=== PATIENT | female | born 1995 | race Two or more races ===

== ENCOUNTER 2020-04-02 15:43 | Outpatient (REF) | payer MEDICAID, SELFPAY | END 2020-04-02 15:44 | disposition home or self-care (01) | LOC: HO.LAB 15:43 | PROVIDERS: PCP Internal Medicine; Visit Provider Internal Medicine | DX: Z20.828 Contact with and (suspected) exposure to other viral communicable diseases (principal) | CPT/HCPCS: 87635 ==

== ENCOUNTER 2021-02-26 15:22 | Outpatient (REF) | payer MEDICAID, SELFPAY | END 2021-02-26 15:23 | disposition home or self-care (01) | LOC: HO.LAB 15:22 | PROVIDERS: PCP Internal Medicine; Visit Provider Internal Medicine | DX: Z20.822 Contact with and (suspected) exposure to COVID-19 (principal) | CPT/HCPCS: C9803; U0003; U0005 ==

== ENCOUNTER 2022-01-04 08:13 | Outpatient (REF) | payer MEDICAID, SELFPAY ==
[2022-01-04 08:33] LABS: MANUAL DIFF FLAG NO
[2022-01-04 09:00] LABS: Basophils Percent Auto 0.2 % (0-2); Eosinophils Absolute Auto 0.1 X10*3/uL (0.0-0.4); Eosinophils Percent Auto 1.5 % (0-4); Hematocrit 39.2 % (37.0-47.0); Hemoglobin 12.9 g/dl (12.0-16.0); Imm Gran Abs Auto 0.02 X10*3/uL (0.00-0.03); Imm Gran Pct Auto 0.4 % (0.0-0.4); Lymphocytes Absolute Auto 1.4 X10*3/uL (1.2-4.9); Lymphocytes Percent Auto 25.7 % (20-40); Mean Corpuscular HGB Conc 32.9 g/dl (31.0-35.0); Mean Corpuscular Hemoglobin 29.4 pg (27.0-33.0); Mean Corpuscular Volume 89.3 fL (80.0-98.0); Mean Platelet Volume 11.2 fL (9.4-12.3); Monocytes Absolute Auto 0.2 X10*3/uL (0.1-1.2); Monocytes Percent Auto 4.3 % (2-11); Neutrophils Absolute Auto 3.7 x10*3/uL (2.0-8.3); Neutrophils Percent Auto 67.9 % (45-73); Platelet Count 170 X10*3/uL (160-400); Red Blood Count 4.39 X10*6/uL (4.20-5.50); Red Cell Distribution Width 13.7 % (11.0-16.0); White Blood Count 5.4 X10*3/uL (4.8-10.8)
[2022-01-04 09:26] LABS: Alanine Aminotransferase 7 U/L (0-31); Albumin Level 4.1 g/dL (3.5-5.0); Alkaline Phosphatase 59 U/L (39-117); Anion Gap 14 (12-20); Aspartate Amino Transferase 15 U/L (5-31); Bilirubin Total 0.4 mg/dL (0.0-1.0); Blood Urea Nitrogen 14 mg/dL (9-16); Carbon Dioxide 28 mmol/L (22-29); Chloride 104 mmol/L (96-108); Cholesterol 140 mg/dL; Estimated Glomerular Filt Rate > 60; Glucose Random 139 mg/dL (60-115); HDL Cholesterol 39 mg/dL; LDL Cholesterol Calculated 67 mg/dl; Sodium 141 mmol/L (135-145); Total Protein 6.8 g/dL (6.5-8.0); Triglycerides 170 mg/dL
[2022-01-04 09:50] LABS: Ferritin 22 ng/mL (10-122); Thyroid Stimulating Hormone 2.06 uIU/mL (0.32-4.0)
== END 2022-01-04 08:14 | disposition home or self-care (01) ==
LOC: HO.LAB 08:13
PROVIDERS: PCP Internal Medicine; Visit Provider Internal Medicine
DX: Z00.01 Encounter for general adult medical examination with abnormal findings (principal); D50.8 Other iron deficiency anemias; E66.01 Morbid (severe) obesity due to excess calories; G47.33 Obstructive sleep apnea (adult) (pediatric)
CPT/HCPCS: 36415; 80053; 80061; 82728; 84443; 85025

== ENCOUNTER 2023-03-17 11:03 | Outpatient (REF) | payer MEDICAID, SELFPAY ==
[2023-03-17 11:17] LABS: MANUAL DIFF FLAG NO
[2023-03-17 12:48] LABS: Basophils Percent Auto 0.2 % (0-2); Eosinophils Percent Auto 0.7 % (0-4); Hematocrit 36.5 % (37.0-47.0); Hemoglobin 11.8 g/dl (12.0-16.0); Imm Gran Abs Auto 0.01 X10*3/uL (0.00-0.03); Imm Gran Pct Auto 0.2 % (0.0-0.4); Lymphocytes Absolute Auto 1.4 X10*3/uL (1.2-4.9); Lymphocytes Percent Auto 31.9 % (20-40); Mean Corpuscular HGB Conc 32.3 g/dl (31.0-35.0); Mean Corpuscular Hemoglobin 27.3 pg (27.0-33.0); Mean Corpuscular Volume 84.3 fL (80.0-98.0); Monocytes Absolute Auto 0.2 X10*3/uL (0.1-1.2); Monocytes Percent Auto 4.7 % (2-11); Neutrophils Absolute Auto 2.7 x10*3/uL (2.0-8.3); Neutrophils Percent Auto 62.3 % (45-73); Platelet Count 174 X10*3/uL (160-400); Red Blood Count 4.33 X10*6/uL (4.20-5.50); Red Cell Distribution Width 14.5 % (11.0-16.0); White Blood Count 4.3 X10*3/uL (4.8-10.8)
[2023-03-17 13:29] LABS: Alanine Aminotransferase 7 U/L (0-31); Albumin Level 4.2 g/dL (3.5-5.0); Alkaline Phosphatase 58 U/L (39-117); Anion Gap 14 (12-20); Aspartate Amino Transferase 16 U/L (5-31); Bilirubin Total 0.4 mg/dL (0.0-1.0); Blood Urea Nitrogen 14 mg/dL (9-16); Calcium 9.8 mg/dL (8.4-10.2); Carbon Dioxide 26 mmol/L (22-29); Chloride 106 mmol/L (96-108); Cholesterol 113 mg/dL (<200); Estimated Glomerular Filt Rate > 60; Glucose Random 80 mg/dL (60-115); HDL Cholesterol 33 mg/dL (>40); LDL Cholesterol Calculated 62 mg/dL (<100); Potassium 4.9 mmol/L (3.3-5.1); Sodium 141 mmol/L (135-145); Total Protein 7.1 g/dL (6.5-8.0); Triglycerides 94 mg/dL (<150)
[2023-03-17 13:41] LABS: Thyroid Stimulating Hormone 1.75 uIU/mL (0.32-4.0)
== END 2023-03-17 11:04 | disposition home or self-care (01) ==
LOC: HO.LAB 11:03
PROVIDERS: PCP Internal Medicine; Visit Provider Internal Medicine
DX: Z00.00 Encounter for general adult medical examination without abnormal findings (principal); G47.33 Obstructive sleep apnea (adult) (pediatric); R73.01 Impaired fasting glucose
CPT/HCPCS: 36415; 80053; 80061; 84443; 85025

== ENCOUNTER 2023-04-01 12:11 | Emergency (ER) | payer MEDICAID, SELFPAY ==
--- NOTE | ~2023-04-01 | US_ITS ---
EXAMINATION: US PELVIS CLINICAL INFORMATION: Pelvic pain COMPARISON: None available. TECHNIQUE: Ultrasound of the pelvis is performed using transabdominal technique along with Doppler. Transvaginal imaging is performed due to inadequate visualization transabdominally. FINDINGS: Uterus: The uterus is anteverted and measures 9.1 x 5.0 x 5.5 cm. The double wall endometrial thickness is 7 mm. The uterus is smooth in contour and has normal myometrial echogenicity. No visible fibroid. Adnexa: Both ovaries are visualized. There is normal color flow to the adnexa. There is no ovarian torsion. There is no pelvic ascites or fluid collection. Right ovary measures 3 mL in volume and left ovary measures 2 mL in volume US/US pelvic complete IMPRESSION: Unremarkable transabdominal pelvic ultrasound.
[2023-04-01 12:44] VITALS: BP 112/70; PULSE 62; RESP 18; TEMP 36.4; O2SAT 100; BMI 50.8
--- NOTE | 2023-04-01 12:45 | ED_ITS ---
HPI - Back Pain/Injury General Chief Complaint: Abdominal Pain Stated Complaint: Back pain Time Seen by Provider: 04/01/23 13:40 Source: patient Mode of arrival: ambulatory Limitations: no limitations History of Present Illness HPI Narrative: 27-year-old female with a history of developmental delay here with her mom who makes medical decisions for her presents with lower back pain and suprapubic discomfort. Per patient she is currently on her menstrual cycle. She typically does have painful heavy bleeding when she has her menstrual cycle. She does also typically have lower back pain when she has her menses. Mom reports symptoms today were more severe from her baseline. She denies any urinary symptoms, fevers, chills, nausea, vomiting, diarrhea, constipation. Did not try any elhu-gjl-byygtde medications. Per mom and patient she is not sexually active and never has been Related Data Previous Rx's Medication Instructions Recorded ibuprofen 600 mg tablet 600 mg PO Q8H PRN pain #30 tabs 04/01/23 nitrofurantoin 100 mg PO Q12H 5 days #10 caps 04/01/23 monohydrate/macrocrystals 100 mg capsule (Macrobid) Allergies Allergy/AdvReac Type Severity Reaction Status Date / Time No Known Allergies Allergy Verified 04/01/23 12:43 Review of Systems 2 Review of Systems: Yes all other systems are reviewed and are negative Constitutional: Constitutional: Reports no additional constitutional complaints, Denies body ache(s), Denies chills, Denies fever(s), Denies headache(s) and Denies weakness Eyes: Eyes: Reports no additional eye complaints and Denies change in vision ENT: Reports system reviewed and no additional complaints, except as documented, Denies dizziness, Denies headache(s), Denies nasal congestion, Denies nasal discharge and Denies neck pain Cardiovascular: Cardiovascular: Reports no additional cardiovascular complaints, Denies chest pain, Denies leg edema and Denies dyspnea Respiratory: Respiratory: Reports no additional respiratory complaints, Denies cough and Denies dyspnea Gastrointestinal: Gastrointestinal: Reports no additional gastrointestinal complaints, Denies abdominal pain, Denies diarrhea, Denies nausea and Denies vomiting Genitourinary: Genitourinary: Reports no additional female genitourinary complaints, Denies hematuria, Denies dysuria, Reports pelvic pain, Denies urinary incontinence, Denies urinary hesitancy, Denies urinary urgency and Denies vaginal discharge Musculoskeletal: Musculoskeletal: Reports no additional musculoskeletal complaints, Reports back pain, Denies arthralgias, Denies joint swelling, Denies neck pain, Denies numbness and Denies tingling Integumentary/Breasts: Skin/Breast: Reports system reviewed and no additional complaints, except as docu and Denies rash Neurologic: Reports system reviewed and no additional complaints, except as documented, Denies Abnormal speech present, Denies dizziness, Denies headache(s), Denies numbness, Denies tingling and Denies weakness PMFSH Past Medical History Attestation statement: The following information was validated with the patient. Source: old records reviewed and nursing notes reviewed Social History Social History Advance Directives: No Advance Directives Information Provided: No Physical Exam 2 Vital Signs: Vital Signs: Last Vital Signs Temp 97.5 F 04/01/23 12:44 Pulse 62 04/01/23 12:44 Resp 18 04/01/23 12:44 BP 112/70 04/01/23 12:44 Pulse Ox 100 04/01/23 12:44 O2 Del Method Room Air 04/01/23 12:44 BMI result Body Mass Index 50.8 Const: General: cooperative, healthy appearing, comfortable and no acute distress Orientation/consciousness: patient oriented x3 Limitations: no limitations HEENT: Head: Yes normal to inspection Ears: hearing grossly normal bilaterally General nose exam: Normal external nose present Face and sinus: Yes normal facial exam Mouth: Normal oral and palatal mucosa present Throat: Yes posterior oropharynx normal Eyes: General: appearance normal, both eyes and all related structures P upils: Equal, round and reactive pupils present Neck: Neck: Yes normal visual inspection Chest: Chest palpation & inspection: normal inspection of the chest Resp: Effort & Inspection: normal respiratory effort Auscultation: clear to auscultation bilaterally Cardio: Rate: regular rate Rhythm: regular rhythm Peripheral pulses: P eripheral pulses 2+ throughout GI: Inspection: Yes normal to inspection Palpation (GI): Soft to palpation and nontender Auscultation: normal bowel sounds : General: Yes no CVA tenderness Back/Spine/Pelvis: Back: no CVA tenderness Thoracic/Lumbar Spine: thoracic and lumbar spine normal to inspection Skin: General skin exam: no rashes or lesions noted Neuro: General: patient oriented x3, no focal motor deficits and normal sensation to monofilament Cranial nerves: Yes Equal, round and reactive pupils present Cognition (Neuro): normal cognition Speech: No Abnormal speech present Gait exam (Neuro): Normal gait present Motor exam (neuro): 5/5 motor strength present throughout Extrem: General: Yes normal to inspection Course Course Course Narrative: This is an RME: Additional HPI, ROS, PE not included below will be deferred to primary provider. Patient is a 27-year-old female who presents to the emergency department for evaluation of diffuse lower back pain. Reports she has been experiencing pain since the onset of her menstrual cycle. She is currently at the end of the cycle, but states that the pain is worse today than previously. Reports pain with urination and lower ABD pain. Plan: labs, U/A Reevaluation(s) Reevaluation #1: UA is consistent with UTI. Labs are unremarkable. Pelvic ultrasound is negative. Pain is resolved toradol. Reviewed worrisome signs and symptoms of when to return to the emergency room. Comfortable plan for discharge home. Medications Administered Discontinued Medications Generic Name Dose Route Start Last Admin Trade Name Freq PRN Reason Stop Dose Admin Ketorolac Tromethamine 30 mg 04/01/23 14:37 04/01/23 15:03 Ketorolac Tromethamine 30 Mg/Ml Vial IM 04/01/23 14:38 30 mg ONCE ONE Administration Medical Decision Making Medical Decision Making [facility] Narrative: 27-year-old female with a history of developmental delay here with her mom who makes medical decisions for her presents with lower back pain and suprapubic discomfort.? Per patient she is currently on her menstrual cycle.? She typically does have painful heavy bleeding when she has her menstrual cycle.? She does also typically have lower back pain when she has her menses.? Mom reports symptoms today were more severe from her baseline.? She denies any urinary symptoms, fevers, chills, nausea, vomiting, diarrhea, constipation.? Did not try any biqn-awz-qjxskjb medications.? Per mom and patient she is not sexually active and never has been No CVA tenderness. No focal abdominal pain. Patient appears comfortable. I will obtain a UA, urine , labs and pelvic ultrasound. Will provide analgesia Differential Diagnosis Differential Diagnoses: The differential diagnosis associated with the presentation includes Doubt ovarian torsion as patient appears quite comfortable. Less likely appendicitis Consider ovarian cysts, dysmenorrhea, UTI Admission/Observation Consideration of admission/observation: Escalation of care including admission/observation considered No concern for pyelonephritis or renal colic with no CVA tenderness, patient nontoxic appearing, afebrile, tolerating p.o. with no difficulty, pain is resolved with Toradol in the emergency room. No need for IV antibiotics and or admission Lab Data MDM Lab Attestation statement: I reviewed the patient's lab results. 04/01/23 13:47 04/01/23 13:47 Labs: Lab Results 04/01/23 04/01/23 04/01/23 Range/Units 13:47 15:05 15:06 WBC 6.6 (4.8-10.8) X10*3/uL RBC 3.97 L (4.20-5.50) X10*6/uL Hgb 11.0 L (12.0-16.0) g/dl Hct 33.5 L (37.0-47.0) % MCV 84.4 (80.0-98.0) fL MCH 27.7 (27.0-33.0) pg MCHC 32.8 (31.0-35.0) g/dl RDW 14.6 (11.0-16.0) % Plt Count 179 (160-400) X10*3/uL MPV 11.8 (9.4-12.3) fL Immature Gran % (Auto) 0.5 H (0.0-0.4) % Neut % (Auto) 87.4 H (45-73) % Lymph % (Auto) 8.7 L (20-40) % [place] % (Auto) 3.2 (2-11) % Eos % (Auto) 0.2 (0-4) % Baso % (Auto) 0.0 (0-2) % Lymph # (Auto) 0.6 L (1.2-4.9) X10*3/uL [place] # (Auto) 0.2 (0.1-1.2) X10*3/uL Eos # (Auto) 0.0 (0.0-0.4) X10*3/uL Baso # (Auto) 0.0 (0.0-0.2) X10*3/uL Abs Immat Gran (auto) 0.03 (0.00-0.03) X10*3/uL Absolute Neuts (auto) 5.8 (2.0-8.3) x10*3/uL Absolute Nucleated RBC 0.000 (0.0-0.012) X10*3/uL Nucleated RBC % (auto) 0.0 (0.0-0.2) /100WBC Sodium 141 (135-145) mmol/L Potassium 4.2 (3.3-5.1) mmol/L Chloride 106 (96-108) mmol/L Carbon Dioxide 25 (22-29) mmol/L Anion Gap 14 (12-20) BUN 12 (9-16) mg/dL Creatinine 0.75 (0.5-1.4) mg/dL Estim Creat Clear Calc 153.9 Estimated GFR > 60 Random Glucose 110 (60-115) mg/dL Calcium 9.3 (8.4-10.2) mg/dL Total Bilirubin 0.5 (0.0-1.0) mg/dL AST 15 (5-31) U/L ALT 8 (0-31) U/L Alkaline Phosphatase 57 (39-117) U/L Total Protein 6.8 (6.5-8.0) g/dL Albumin 4.0 (3.5-5.0) g/dL Lipase 46 (8-78) U/L Urine Color [place] A Urine Appearance Cloudy Urine pH 5.5 (5.0-9.0) Ur Specific [place] 1.025 (1.005-1.025) Urine Protein 100 (2+) H (Neg-Trace) mg/dL Urine Glucose (UA) Negative (Negative) mg/dL Urine Ketones 15 (Negative) mg/dL Urine Blood Large (3+) H (Negative) Urine Nitrite Negative (Negative) Ur Leukocyte Esterase Small (1+) H (Negative) Urine RBC >20 H (0-2) /HPF Urine WBC 6-10 H (0-5) /HPF Ur Squamous Epith Cells 6-10 (0-2) /HPF Urine Bacteria 4+ (None Seen) Hyaline Casts 0-2 (0-2) /LPF Urine Test NEGATIVE (NEGATIVE) Independent Interpretation I performed an independent interpretation of an: Ultrasound Interpretation: I independently reviewed the US and agree with the rad report Radiology Impression Discussion of test interpretation with radiology: I have reviewed the radiologist's reading. Radiologist Impression: [address] [address] Ultrasound Report Signed Patient: Su Niño MR#: [id number] : 1995 Acct:[id number] Age/Sex: 27 / F ADM Date: 04/01/23 Loc: HO.ED Attending Dr: Ordering Physician: Hodan Garcia NP Date of Service: 04/01/23 Procedure(s): US pelvic complete Accession Number(s): [id number] cc: Physician,Unknown ; Hodan Garcia NP~ EXAMINATION: US PELVIS CLINICAL INFORMATION: Pelvic pain COMPARISON: None available. TECHNIQUE: Ultrasound of the pelvis is performed using transabdominal technique along with Doppler. Transvaginal imaging is performed due to inadequate visualization transabdominally. FINDINGS: Uterus: The uterus is anteverted and measures 9.1 x 5.0 x 5.5 cm. The double wall endometrial thickness is 7 mm. The uterus is smooth in contour and has normal myometrial echogenicity. No visible fibroid. Adnexa: Both ovaries are visualized. There is normal color flow to the adnexa. There is no ovarian torsion. There is no pelvic ascites or fluid collection. Right ovary measures 3 mL in volume and left ovary measures 2 mL in volume US/US pelvic complete IMPRESSION: Unremarkable transabdominal pelvic ultrasound. Independent Historian Clinical information obtained from an independent historian. History obtained from or confirmed by: Parent Tests considered The following testing was considered but not selected: No CVA tenderness, fever, vomiting to suggest pyelonephritis or renal colic which with pain that is well controlled with short Prescription Management I considered prescription management with: Antibiotic Discharge Plan Discharge Clinical Impression: UTI (urinary tract infection) Patient Disposition: Home, Self-Care Instructions: Urinary Tract Infection in Women (ED) Additional Instructions: Heat or ice Take the medications as prescribed, return for worsening symptoms Follow-up with primary care doctor Calor o hielo [place] los medicamentos seg?n lo recetado y regrese si los s?ntomas empeoran. Seguimiento con m?dico de atenci?n primaria. Prescriptions: New ibuprofen 600 mg tablet 600 mg PO Q8H PRN (Reason: pain) Qty: 30 0RF nitrofurantoin monohyd/m-cryst [Macrobid] 100 mg capsule 100 mg PO Q12H 5 Days Qty: 10 0RF Rx Instructions: must administer with a meal/food Referrals: Physician,Unknown J [Primary Care Provider] - 1 week
[2023-04-01 13:51] LABS: MANUAL DIFF FLAG NO
[2023-04-01 13:54] LABS: Eosinophils Percent Auto 0.2 % (0-4); Hematocrit 33.5 % (37.0-47.0); Imm Gran Abs Auto 0.03 X10*3/uL (0.00-0.03); Imm Gran Pct Auto 0.5 % (0.0-0.4); Lymphocytes Absolute Auto 0.6 X10*3/uL (1.2-4.9); Lymphocytes Percent Auto 8.7 % (20-40); Mean Corpuscular HGB Conc 32.8 g/dl (31.0-35.0); Mean Corpuscular Hemoglobin 27.7 pg (27.0-33.0); Mean Corpuscular Volume 84.4 fL (80.0-98.0); Mean Platelet Volume 11.8 fL (9.4-12.3); Monocytes Absolute Auto 0.2 X10*3/uL (0.1-1.2); Monocytes Percent Auto 3.2 % (2-11); Neutrophils Absolute Auto 5.8 x10*3/uL (2.0-8.3); Neutrophils Percent Auto 87.4 % (45-73); Platelet Count 179 X10*3/uL (160-400); Red Blood Count 3.97 X10*6/uL (4.20-5.50); Red Cell Distribution Width 14.6 % (11.0-16.0); White Blood Count 6.6 X10*3/uL (4.8-10.8)
[2023-04-01 14:06] LABS: Alanine Aminotransferase 8 U/L (0-31); Alkaline Phosphatase 57 U/L (39-117); Anion Gap 14 (12-20); Aspartate Amino Transferase 15 U/L (5-31); Bilirubin Total 0.5 mg/dL (0.0-1.0); Blood Urea Nitrogen 12 mg/dL (9-16); Calcium 9.3 mg/dL (8.4-10.2); Carbon Dioxide 25 mmol/L (22-29); Chloride 106 mmol/L (96-108); Creatinine Clr Calc Pharmacy 153.9; Estimated Glomerular Filt Rate > 60; Glucose Random 110 mg/dL (60-115); Lipase 46 U/L (8-78); Potassium 4.2 mmol/L (3.3-5.1); Sodium 141 mmol/L (135-145); Total Protein 6.8 g/dL (6.5-8.0)
[2023-04-01] MEDS: Ketorolac Tromethamine 30 MG/ML VIAL IM (15:03)
[2023-04-01 15:19] LABS: Appearance Urine Cloudy; Color Urine Orange
[2023-04-01 15:19] LABS: UPreg QC Valid YES; Urine Pregnancy NEGATIVE (NEGATIVE)
--- NOTE | 2023-04-01 15:19 | PC.NURSE ---
patient medicated per the MAR for pain. urine sample obtained and sent. mom remains at the bedside.
[2023-04-01 15:20] LABS: Glucose Urine UA Negative (Negative); Leukocyte Esterase Urine Small (1+) (Negative); Nitrite Urine Negative (Negative); PH 5.5 (5.0-9.0); Specific Gravity - Urine 1.025 (1.005-1.025); UMIC TRIGGER UACC YES; Urine Blood Large (3+) (Negative); Urine Ketones 15 mg/dL (Negative); Urine Protein 100 (2+) mg/dL (Neg-Trace)
[2023-04-01 15:21] LABS: Bacteria Urine 4+ (None Seen); Hyaline Casts Urine 0-2 /LPF (0-2); RBC Urine >20 /HPF (0-2); UACC Culture Trigger YES
== END 2023-04-01 16:15 | disposition home or self-care (01) ==
PROVIDERS: Nurse Practitioner Family; Emergency Provider Student in an Organized Health Care Education/Training Program
DX: N39.0 Urinary tract infection, site not specified (principal)
CPT/HCPCS: 36415; 76856; 80053; 81001; 81025; 83690; 85025; 87086; 96372; 99284; J1885

== ENCOUNTER 2025-01-02 10:48 | Outpatient (REF) | payer MEDICAID, SELFPAY ==
[2025-01-02 11:03] LABS: MANUAL DIFF FLAG NO
[2025-01-02 11:30] LABS: Hematocrit 28.4 % (37.0-47.0); Hemoglobin 8.7 g/dl (12.0-16.0); Imm Gran Abs Auto 0.01 X10*3/uL (0.00-0.03); Imm Gran Pct Auto 0.2 % (0.0-0.4); Lymphocytes Absolute Auto 1.3 X10*3/uL (1.2-4.9); Mean Corpuscular HGB Conc 30.6 g/dl (31.0-35.0); Mean Corpuscular Hemoglobin 23.8 pg (27.0-33.0); Mean Corpuscular Volume 77.6 fL (80.0-98.0); NRBC Abs Auto 0.000 X10*3/uL (0.0-0.012); NRBC Pct Auto 0.0 /100WBC (0.0-0.2); Platelet Count 249 X10*3/uL (160-400); Red Blood Count 3.66 X10*6/uL (4.20-5.50); White Blood Count 4.1 X10*3/uL (4.8-10.8)
[2025-01-02 12:12] LABS: Alanine Aminotransferase 12 U/L (0-31); Albumin Level 4.1 g/dL (3.5-5.0); Alkaline Phosphatase 63 U/L (39-117); Anion Gap 10 (12-20); Aspartate Amino Transferase 21 U/L (5-31); Blood Urea Nitrogen 17 mg/dL (9-16); Calcium 8.6 mg/dL (8.4-10.2); Carbon Dioxide 29 mmol/L (22-29); Chloride 108 mmol/L (96-108); Estimated Glomerular Filt Rate > 60; Potassium 4.7 mmol/L (3.3-5.1); Sodium 142 mmol/L (135-145); Total Protein 6.8 g/dL (6.5-8.0)
[2025-01-02 12:31] LABS: Ferritin 4 ng/mL (10-122)
== END 2025-01-02 10:49 | disposition home or self-care (01) ==
LOC: HO.LAB 10:48
PROVIDERS: PCP Internal Medicine; Visit Provider Internal Medicine
DX: Z00.00 Encounter for general adult medical examination without abnormal findings (principal); F70 Mild intellectual disabilities; G47.33 Obstructive sleep apnea (adult) (pediatric); N94.6 Dysmenorrhea, unspecified; D50.8 Other iron deficiency anemias
CPT/HCPCS: 36415; 80053; 82728; 85025

== ENCOUNTER 2025-01-16 12:19 | Outpatient (REF) | payer MEDICAID, SELFPAY ==
[2025-01-16 14:47] LABS: Hematocrit 31.8 % (37.0-47.0); Hemoglobin 9.6 g/dl (12.0-16.0); Mean Corpuscular HGB Conc 30.2 g/dl (31.0-35.0); Mean Corpuscular Hemoglobin 24.2 pg (27.0-33.0); Mean Corpuscular Volume 80.3 fL (80.0-98.0); NRBC Abs Auto 0.000 X10*3/uL (0.0-0.012); NRBC Pct Auto 0.0 /100WBC (0.0-0.2); Platelet Count 233 X10*3/uL (160-400); Red Blood Count 3.96 X10*6/uL (4.20-5.50); White Blood Count 5.4 X10*3/uL (4.8-10.8)
[2025-01-16 18:06] LABS: CT PCR NOT DETECTED (Not Detect.); NG PCR NOT DETECTED (Not Detect.)
== END 2025-01-16 12:20 | disposition home or self-care (01) ==
LOC: HO.LAB 12:19
PROVIDERS: PCP Internal Medicine; Visit Provider Obstetrics & Gynecology
DX: N93.9 Abnormal uterine and vaginal bleeding, unspecified (principal); Z32.02 Encounter for pregnancy test, result negative
CPT/HCPCS: 36415; 58100; 58300; 81025; 84443; 84702; 85027; 87491; 87591; 88175; 88305; 99202; J7298

== ENCOUNTER 2025-01-16 12:19 | Outpatient (AMB) | payer MEDICAID, SELFPAY ==
--- NOTE | 2025-01-16 12:32 | A.OFFVIS_ITS ---
Vital Signs 01/16/25 12:41 Height 5 ft 4 in Weight 230 lb BMI 39.5 BP 114/72 Intake Visit Reasons: heavy menses/iron deficiency Record Searcher: Record Searcher Present (Nadia) Accompanied by: Self / Same As Patient Allergies No Known Allergies Allergy (Verified 01/16/25 12:39) Is last menstrual period known: Yes Last menstrual period: 12/20/24 Post menopausal: No Patient : No HPI Comments Details: Presenting complaining of heavy menstrual cycles associated with passage of blood clots and pelvic cramping. No previous pelvic exam or Pap smear 12/27 H&H= 8.7/28.4 [facility] Social History Household Members: Family Alcohol intake: current Comment: Occasional, family gathering Current occupational status: employed Female Reproductive History Menstrual Age of Menarche: 13 Duration of menses: 6-7 days Date of last menstrual period: 12/20/24 control method: pills Total pregnancies: 0 Review of Systems Const All systems reviewed & are unremarkable except as noted in HPI and below Card Reports as per HPI Resp Reports as per HPI GI Reports as per HPI and Reports no additional complaints Reports as per HPI Physical Exam Const General: cooperative, healthy appearing and comfortable Chest Chest palpation & inspection: normal inspection of the chest and normal palpation of entire chest wall Breast/axilla inspection: normal inspection of the breasts and normal inspection of the axillae Breast/axilla palpation: normal palpation of the breasts, normal palpation of the axillae and no axillary lymphadenopathy Resp Effort & Inspection: normal respiratory effort Auscultation: clear to auscultation bilaterally Percussion: percussion normal Cardio Palpation: normal PMI Rate: regular rate Rhythm: regular rhythm Heart sounds: no murmurs and no rubs Peripheral pulses: Peripheral pulses 2+ throughout GI Inspection: Yes normal to inspection Palpation (GI): Soft to palpation, nontender, no guarding, not rigid and No hepatosplenomegaly present Percussion: Yes normal to percussion Auscultation: normal bowel sounds Rectal Exam - Female: deferred General: Yes bladder normal to palpation External Female Exam: No lesion Speculum Exam - Vagina: normal appearance of the vagina, normal palpation, normal vaginal discharge and not erythematous Speculum Exam - Cervix: normal appearance of the cervix and normal palpation Bimanual exam- vagina & uterus: normal bimanual exam, normal palpation, uterine size normal, bladder normal to palpation, consistency normal and normal palpation Bimanual Exam- Adnexa, other: normal adnexae, no masses and no tenderness Office Procedures Endometrial Biopsy Details: The patient was counseled regarding the indication and benefits of endometrial sampling to rule out endometrial pathology including not limited to endometrial hyperplasia or endometrial cancer and others; The alternatives (Either do nothing vs. hysteroscopy D&C) & the risks were discussed with the patient including but not limited: pain, uterine perforation, bleeding, infection, possible injury to bladder, bowel, ureter, possible need for blood transfusion with all its possible risks. The patient verbalized understanding all questions answered and signed consent. Urine test done in the office was negative The patient was placed into the dorsal lithotomy position; a speculum was inserted in the vagina. Using aseptic technique for the procedure, the cervix was cleansed with Betadine. The anterior lip of the cervix was grasped with a single tooth tenaculum. The uterus was sounded to 7 cm with a 4 mm Pipelle was used. Tissues samples were obtained and placed in formalin, in a patient labeled container and sent to the pathology department. At the end of the procedure, there was minimal bleed ing noted The patient tolerated the procedure well and was discharged in good condition with the following instructions: Nothing in the vagina until the bleeding stops. No sex until the bleeding stops, to call if any of the following occurs: fever (>100.4), flu-like symptoms, abdominal pain, heavy bleeding, four smelling vaginal discharge. The patient was instructed to schedule a Follow up appointment in 2 weeks to discuss pathology results of the biopsy and treatment options. This note was generated with a voice recognition program. Some errors may have been overlooked during the review of this note. Sometimes these errors may affect the content or meaning of a given sentence. 70121-Aieqardkpqs Biopsy IUD Insert/Removal Details Details: The patient is presenting for Mirena IUD insertion Urine test was done in the office and was negative; All the contraindications were excluded. The following possible complications were discussed with the patient: Intrauterine , Ectopic , Sepsis, Pelvic Infection, Irregular Bleeding and Amenorrhea, Perforation, Expulsion, Ovarian Cysts, Breast Cancer, The following adverse effects were discussed with the patient: alteration of menstrual bleeding pattern, including: unscheduled uterine bleeding decreased uterine bleeding increased scheduled uterine bleeding female genital tract bleeding ,amenorrhea , genital discharge , vulvovaginitis , breast pain , benign ovarian cyst and associated complications , dysmenorrhea , Gastrointestinal disorders abdominal/pelvic pain, headache/migraine , back pain , acne , depression Alternative options were discussed with the patient including but not limited: control pills, patch, NuvaRing, Depo-medroxyprogesterone acetate, Nexplanon, copper IUD, sterilization, vasectomy, others The procedure was explained in detail to patient , at the end patient signed the informed consent obtained. A no touch technique was used throughout the procedure. A speculum was placed into vagina and cervix was cleaned with betadine). A tenaculum was placed. A plastic sound was advanced through the external and internal os until it reached the fundus of the uterus, the depth was 8 cm. The sound was then withdrawn. The IUD was loaded in a sterile manner and advanced into position. The string was visualized and cut to 3 cm. Tenaculum site hemostatic. All instruments removed from vagina. Patient tolerated the procedure well. NO complications were noted. Patient was instructed to call for fever over 100.4, significant pain unrelieved by Motrin, IUD expulsion, heavy bleeding, or abnormal discharge. In addition, the following clinical considerations were discussed with the patient to call for removal: A stroke or heart attack ,Very severe or migraine headaches ,Unexplained fever ,Yellowing of the skin or whites of the eyes, as these may be signs of serious liver problems , or suspected , Pelvic pain or pain during sex ,HIV positive seroconversion in herself or her partner , Possible exposure to sexually transmitted infections Unusual vaginal discharge or genital sores , severe vaginal bleeding or bleeding that lasts a long time, or if she misses a menstrual period, Inability to feel Mirena's threads Counseled the patient that the IUD does not protect against STI's, recommended use of condoms for the first 7 days post insertion and explained to the patient that condoms are recommended for patients at risk for sexually transmitted infec tions. Informed the patient that Mirena IUD is FDA approved for 8 years for contraception for 5 years for the treatment of heavy menses Instructed the patient to schedule a Follow up appointment in 4 to 6 weeks following insertion. This note was generated with a voice recognition program. Some errors may have been overlooked during the review of this note. Sometimes these errors may affect the content or meaning of a given sentence. 28820-QFF Insertion Procedure code (CPT) selection complete Office Meds Mirena 21 mcg/24 hr (up to 8 years) 52 mg intrauterine device Performing Provider: Brennan Piper MD Performing Location: [facility] [place] [facility] Documented (not given) by: Brennan Piper MD on 01/16/25 13:30 Dose Route Admin Location Dispensed Lot Number Expiration Date [facility] [place] Safety Council Director 1 device intrauterine ea Total Dispensed Waste n/a n/a Assessment & Plan Assessment & Plan (1) Abnormal uterine bleeding (AUB): Code(s): N93.9 - Abnormal uterine and vaginal bleeding, unspecified Category: Medical Plan: Pap smear done, GC and chlamydia taken CBC, TSH, HCG, and pelvic ultrasound ordered. Discussed with the patient the different causes of abnormal bleeding including thyroid disorders, uterine and ovarian pathology, endometrial hyperplasia, carcinoma and other potential causes. Discussed with the patient the work up including CBC (to r/o anemia), TSH, pelvic Ultrasound, endometrial biopsy to r/o endometrial pathology. EMB done, see procedure note Discussed with the and her mom the options of treatment including Lysteda, control pills, Mirena IUD, endometrial ablation and hysterectomy. All pros, cons, risks and benefits if each option was discussed with the patient and the patient decided to go ahead with Mirena IUD so a more detailed discussion about it was conducted including mechanism of action, risks (uterine perforation, infection, injury to bladder, bowel, displacement, and others) benefits (hypo menorrhea, amenorrhea, ...). Mirena IUD inserted, see procedure note The patient's mom was present throughout the whole visit and procedure Instructions given to patient to schedule a 2 week EMB follow-up appointment and a 6 week IUD check follow-up appointment. All questions answered, the patient verbalized understanding Orders: Orders US pelvic and transvaginal Today N93.9 - Abnormal uterine and vaginal bleeding, unspecified AMB Endometrial Biopsy Today N93.9 - Abnormal uterine and vaginal bleeding, unspecified AMB IUD Insertion/Removal - Practice Supplied Today N93.9 - Abnormal uterine and vaginal bleeding, unspecified TSH reflex Free T4 Today N93.9 - Abnormal uterine and vaginal bleeding, unspecified HCG Quantitative Today N93.9 - Abnormal uterine and vaginal bleeding, unspecified Complete Blood Count no Diff Today N93.9 - Abnormal uterine and vaginal bleeding, unspecified Medications: New Mirena (levonorgestrel) 1 device intrauterine ONCE 1 ea 0RF AUB NS N93.9 - Abnormal uterine and vaginal bleeding, unspecified Discontinued nitrofurantoin monohyd/m-cryst 100 mg (Macrobid) must administer with a meal/food Discontinued Reason: Patient Completed Course 100 mg PO Q12H 5 days 10 caps 0RF Coding Level of Care Code New Pt Level 3 (93109) Procedure Only Diagnoses Abnormal uterine bleeding (AUB) N93.9 CPT Codes Endometrial Biopsy - CPT: 83756-Cdawdygvdwn Biopsy ([id number]) Details - CPT: 21410-AQP Insertion ([id number])
[2025-01-16 12:41] VITALS: BP 114/72; BMI 39.5
== END 2025-01-16 13:43 | disposition home or self-care (01) ==
PROVIDERS: PCP Internal Medicine; Visit Provider Obstetrics & Gynecology
DX: N93.9 Abnormal uterine and vaginal bleeding, unspecified (principal); Z32.02 Encounter for pregnancy test, result negative; Z30.430 Encounter for insertion of intrauterine contraceptive device
CPT/HCPCS: 58100; 58300; 99203

== ENCOUNTER 2025-02-04 12:07 | Outpatient (AMB) | payer MEDICAID, SELFPAY ==
--- NOTE | 2025-02-04 12:09 | A.OFFVIS_ITS ---
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 The patient is status her bleeding has markedly slowed down and is doing well, On Fe 325 mg po bid The following workup was done.: H&H= 9.6/31.8 TSH, hCG, GC and chlamydia were negative. Endometrial biopsy pathology showed the following: Benign interval to early secretory endometrium; no atypia or carcinoma Pap smear was done was negative. Pelvic ultrasound is scheduled in few weeks [facility] Social History Household Members: Family Alcohol intake: current Comment: Occasional, family gathering Current occupational status: employed Female Reproductive History Menstrual Age of Menarche: 13 Review of Systems Const All systems reviewed & are unremarkable except as noted in HPI and below Reports as per HPI and Reports no additional complaints GI Reports no additional complaints Reports no additional complaints Telehealth Telehealth Telehealth Platform: [facility] Location of provider rendering services: practice address Location of patient: other Patient Identification confirmed using: Name, : Yes Telehealth method: video Patient verbally consented to treatment: Yes Patient verbally consented to billing insurance company: Yes Patient informed of any privacy concerns related to visit: Yes Minutes spent on Phone/Video with Pt.: 12 Assessment & Plan Assessment & Plan (1) Abnormal uterine bleeding (AUB): Code(s): N93.9 - Abnormal uterine and vaginal bleeding, unspecified Category: Medical Plan: Instructions given the patient to keep taking iron sulfate 325 mg p.o. b.i.d. and schedule an ultrasound follow-up appointment and to call or go to emergency room in case of pelvic pain and or bleeding fever above 100.4. All questions answered, the patient verbalized understanding. I spent a total of 20 minutes reviewing the chart, talking to the patient via [employer] and documenting in the medical record. Orders: Orders Complete Blood Count no Diff 4 Weeks N93.9 - Abnormal uterine and vaginal bleeding, unspecified Coding Level of Care Code Tele Est Pt Level 3 (48737) Diagnoses Abnormal uterine bleeding (AUB) N93.9
== END 2025-02-04 13:09 | disposition home or self-care (01) ==
LOC: HO.HWS 12:07
PROVIDERS: PCP Internal Medicine; Visit Provider Obstetrics & Gynecology
DX: N93.9 Abnormal uterine and vaginal bleeding, unspecified (principal)
CPT/HCPCS: 99213

== ENCOUNTER 2025-03-10 15:40 | Outpatient (REF) | payer MEDICAID, SELFPAY ==
--- NOTE | ~2025-03-10 | US_ITS ---
EXAMINATION: US PELVIS CLINICAL INFORMATION: Abnormal uterine/vaginal bleeding. COMPARISON: None available. TECHNIQUE: Transabdominal evaluation FINDINGS: LMP: 03/09/2025 Uterus: The uterus is anteverted and measures 9.2 x 4.7 x 4.5 cm. No focal uterine lesion seen. The double wall endometrial thickness is 4 mm. Adnexa: Right ovary is not visualized Left ovary measures 4.1 x 2 x 2.8 cm, volume 11.9 mL. Limited evaluation of vascular flow on the transabdominal evaluation. No free fluid in the cul-de-sac. Limited examination due to patient body habitus. US/US pelvic complete IMPRESSION: Limited evaluation as above. The right ovary is not visualized. Left ovary measures 4.1 cm. Limited evaluation of vascular flow on the transabdominal ultrasound. Electronically signed by: Rd Magdaleno MD 03/10/2025 04:36 PM EDT
== END 2025-03-10 15:41 | disposition home or self-care (01) ==
LOC: HO.US 15:40
PROVIDERS: PCP Internal Medicine; Visit Provider Obstetrics & Gynecology
DX: N93.9 Abnormal uterine and vaginal bleeding, unspecified (principal)
CPT/HCPCS: 76856

== ENCOUNTER 2025-04-03 15:34 | Outpatient (AMB) | payer MEDICAID, SELFPAY ==
--- NOTE | 2025-04-03 15:40 | A.OFFVIS_ITS ---
Vital Signs 04/03/25 16:00 BP 116/74 Intake Visit Reasons: iud/us follow up Accompanied by: Mother Allergies No Known Allergies Allergy (Verified 04/03/25 16:00) HPI Comments Details: Presenting for ultrasound follow-up and IUD check . The patient is doing well with no complaint Pelvic ultrasound showed the following: Uterus: The uterus is anteverted and measures 9.2 x 4.7 x 4.5 cm. No focal uterine lesion seen. The double wall endometrial thickness is 4 mm. Adnexa: Right ovary is not visualized Left ovary measures 4.1 x 2 x 2.8 cm, volume 11.9 mL. Limited evaluation of vascular flow on the transabdominal evaluation. No free fluid in the cul-de-sac. Limited examination due to patient body habitus. [facility] Social History Household Members: Family Alcohol intake: current Comment: Occasional, family gathering Current occupational status: employed Female Reproductive History Menstrual Age of Menarche: 13 Review of Systems Const All systems reviewed & are unremarkable except as noted in HPI and below Physical Exam Vital Signs: Last Vital Signs BP 116/74 04/03/25 16:00 General: Yes no CVA tenderness External Female Exam: normal external appearance and normal appearance of the urethra Speculum Exam - Vagina: normal appearance of the vagina, normal palpation, no lesions and no masses Speculum Exam - Cervix: normal appearance of the cervix, normal palpation, no lesions, no masses, nontender and Other cervical findings present (IUD string in place) Bimanual exam- vagina & uterus: normal bimanual exam, normal palpation, uterine size normal, normal palpation, uterine shape normal, No Cervical tenderness present and non-tender Bimanual Exam- Adnexa, other: normal adnexae Back/Spine/Pelvis Back: no CVA tenderness Assessment & Plan Assessment & Plan (1) Abnormal uterine bleeding (AUB): Code(s): N93.9 - Abnormal uterine and vaginal bleeding, unspecified Category: Medical Plan: Discussed with the patient the results the ultrasound and the limited visualization possibly compromising any pathology, recommended repeat vaginal ultrasound, the patient declined (2) IUD check up: Code(s): Z30.431 - Encounter for routine checking of intrauterine contraceptive device Category: Medical Plan: UPT done in the office was negative. Discussed with the patient the finding on physical exam, IUD string in place, the patient was reassured. Instructions given to patient to call in case of temperature above 100.4, severe cram ping/pelvic pain, abnormal discharge or abnormal uterine bleeding or if she misses her menstrual cycle. Otherwise follow-up at her annual exam appointment. All questions answered, the patient verbalized understanding. Since ultrasound did not mention presence of the IUD and pelvic exam IUD string is in place, a message was sent to the Radiology Department for the radiologist to review the films and add an addendum under report regarding the IUD Coding Level of Care Code Est Pt Level 3 (09193) Diagnoses Abnormal uterine bleeding (AUB) N93.9 IUD check up Z30.431
[2025-04-03 16:00] VITALS: BP 116/74
== END 2025-04-03 16:16 | disposition home or self-care (01) ==
LOC: HO.HWS 15:35
PROVIDERS: PCP Internal Medicine; Visit Provider Obstetrics & Gynecology
DX: N93.9 Abnormal uterine and vaginal bleeding, unspecified (principal); Z30.431 Encounter for routine checking of intrauterine contraceptive device
CPT/HCPCS: 99213

== ENCOUNTER → 2025-04-03 15:34 | Outpatient (BNVA) | payer MEDICAID, SELFPAY | PROVIDERS: PCP Internal Medicine; Visit Provider Obstetrics & Gynecology | DX: Z30.431 Encounter for routine checking of intrauterine contraceptive device (principal); N93.9 Abnormal uterine and vaginal bleeding, unspecified | CPT/HCPCS: 99212 ==